=== PATIENT | male | born 1995 | race Caucasian/White ===

== ENCOUNTER 2019-01-13 15:41 | Observation (INO) ==
[2019-01-13] MEDS ORDERED: SODIUM CHLORIDE 0.9% 1,000 ML IV STA ×2 (15:54→17:37)
[2019-01-13] MEDS ORDERED: ONDANSETRON 4 MG/2 ML VIAL IV STA (15:54)
[2019-01-13 16:09] LABS: Basophils # 0.1 10*3/uL (0.0-0.2); Basophils % 0.9 % (0.0-0.8); Eosinophils # 0.1 10*3/uL (0.0-0.87); Eosinophils % 1.1 % (0.00-10.9); Hematocrit 50.8 VOL% (42.0-52.0); Hemoglobin 17.8 GM/DL (14.0-18.0); Immature Granulocytes % 0.5 %; Immature Granulocytes Absolute 0.06 #; Lymphocytes # 2.6 10*3/uL (1.4-4.0); Lymphocytes % 22.7 % (21.2-54.2); Mean Corpuscular Volume 80.5 FL (87-102); Mean Platelet Volume 9.8 FL (9.6-12.0); Monocytes % 5.6 % (1.7-12.7); Neutrophils % 69.2 % (38.7-73.9); Platelet Count 316 T/CUMM (130-400); Red Blood Count 6.31 MC/CUMM (3.8-5.5); White Blood Count 11.3 T/CUMM (4-12)
[2019-01-13] MEDS ORDERED: PROMETHAZINE 25 MG/1 ML VIAL ONE (16:13)
[2019-01-13] MEDS ORDERED: PROMETHAZINE 25 MG/1 ML VIAL IM STA (16:19)
[2019-01-13] MEDS ORDERED: INSULIN REGULAR 100 UNIT/ML SUBCUT STA (16:22)
[2019-01-13 16:32] LABS: Calcium 10.7 MG/DL (8.5-10.1); Osmolality,Calculated 283.7 MOS/KG (273-304)
[2019-01-13] MEDS ORDERED: PROMETHAZINE INJ 25 MG in SODIUM CHLORIDE 0.9% 50 ML IV STA (17:37)
[2019-01-13 18:01] LABS: Barbiturates Screen,Urine Negative (Negative); Benzodiazepines Screen,Urine Negative (Negative); Cannabinoid Screen,Urine Positive (Negative); Opiate Screen,Urine Negative (Negative); Phencyclidine Screen,Urine Negative (Negative)
[2019-01-13 18:06] LABS: Apearance,Urine CLOUDY (Clear); Bilirubin,Urine Negative (Negative); Blood, Urine Moderate mg/dL (Negative); Calcium Oxalate Crystals,Urine Moderate /HPF (Few); Glucose,Urine (UA) >=500 mg/dL (Negative); Hyaline Casts,Urine 193 /LPF (0-3); Ketones,Urine 20 mg/dL (Negative); Mucus,Urine Moderate /LPF (Occasional); Nitrite,Urine Negative (Negative); Protein,Urine 100 MG/DL; RBC,Urine 26 /HPF (0-4); Sperm,Urine Occasional /HPF (Negative); Squamous Epithelial Cell,Urine Occasional /HPF (0-10); Urine Color Amber (Yellow); Urine Specific Gravity 1.023 (1.001-1.035); WBC,Urine 5 /HPF (0-6)
[2019-01-13 19:00] LABS: ABG Base Excess 0.1 MMOL/L (-2.5-2.5); ABG HCO3 24.4 MMOL/L (20-26); ABG Oxygen Saturation 97.3 % (95-100); ABG PCO2 32.6 MM HG (35-48); ABG PH 7.455 (7.35-7.45); ABG PO2 98.2 MM HG (80-95); Allen Test Positive; Pt O2 Delivery Device Room Air
[2019-01-13] MEDS ORDERED: PROMETHAZINE 25 MG/1 ML VIAL IM PRN (19:17)
[2019-01-13] MEDS ORDERED: DEXTROSE 50% 25 GM/50 ML VIAL IV PRN ×2 (19:17)
[2019-01-13] MEDS ORDERED: ACETAMINOPHEN 325 MG TABLET PO PRN (19:17)
[2019-01-13] MEDS ORDERED: GLUCAGON 1 MG VIAL IM PRN ×2 (19:17)
[2019-01-13] MEDS: SODIUM CHLOR 0.9% KCL 20 MEQ 20 MEQ/1,000 ML BAG IV SCH (20:10)
[2019-01-13] MEDS: INSULIN LISPRO 100 UNIT/ML SUBCUT SCH (23:43)
[2019-01-14] MEDS: SODIUM CHLOR 0.9% KCL 20 MEQ 20 MEQ/1,000 ML BAG IV SCH (06:24)
[2019-01-14] MEDS: INSULIN LISPRO 100 UNIT/ML SUBCUT SCH ×2 (06:25→11:55)
[2019-01-14 06:54] LABS: Basophils # 0.1 10*3/uL (0.0-0.2); Basophils % 0.4 % (0.0-0.8); Eosinophils % 0.1 % (0.00-10.9); Hematocrit 43.2 VOL% (42.0-52.0); Immature Granulocytes % 0.5 %; Immature Granulocytes Absolute 0.06 #; Lymphocytes % 15.5 % (21.2-54.2); Mean Corpuscular HGB Conc 35.2 GM/DL (32-36); Mean Corpuscular Volume 83.4 FL (87-102); Mean Platelet Volume 10.2 FL (9.6-12.0); Monocytes % 5.8 % (1.7-12.7); Neutrophils % 77.7 % (38.7-73.9); Red Blood Count 5.18 MC/CUMM (3.8-5.5); Red Cell Distribution Width 12.3 % (9.3-17.3)
[2019-01-14 06:55] LABS: Hemoglobin 15.2 GM/DL (14.0-18.0); Platelet Count 247 T/CUMM (130-400)
[2019-01-14 07:04] LABS: Osmolality,Calculated 287.3 MOS/KG (273-304)
[2019-01-14] MEDS ORDERED: INSULIN GLARGINE 100 UNIT/ML SUBCUT SCH (09:30)
[2019-01-14 12:13] VITALS: BP 133/67
== END 2019-01-14 14:22 | disposition home or self-care (01) ==
LOC: N.EDINP 15:41 → N.ED 15:41 → N.5E 20:32
PROVIDERS: ADMIT Internal Medicine; ATTEND Internal Medicine